=== PATIENT | female | born 1970 | race Caucasian/White ===

== ENCOUNTER 2022-06-29 07:30 | Outpatient (RCR) | payer OTHER, SELFPAY | END 2023-01-27 15:57 | disposition home or self-care (01) | PROVIDERS: PCP Family Medicine; Visit Provider Orthopaedic Surgery Sports Medicine | DX: M25.521 Pain in right elbow (principal); Z51.89 Encounter for other specified aftercare | CPT/HCPCS: 97110; 97140; 97165; X5282 ==

== ENCOUNTER 2022-08-16 06:31 | Emergency (ER) | payer OTHER, SELFPAY ==
[2022-08-16 07:15] VITALS: BP 128/86; PULSE 90; RESP 18; TEMP 36.2; O2SAT 98; BMI 39.1
--- NOTE | 2022-08-16 07:41 | ED_ITS ---
HPI - Extremity Injury (Lower) General Chief Complaint: Extremity Pain/Injury, Lower Stated Complaint: Left knee pain Time Seen by Provider: 08/16/22 06:37 Related Data Home Medications Medication Instructions Recorded Confirmed acetaminophen 325 mg tablet 325 - 650 mg PO Q4H PRN 05/25/22 07/15/22 albuterol 90 mcg/actuation aerosol 2 spray inhalation PRN 05/25/22 07/15/22 inhaler cetirizine 10 mg tablet 10 mg PO DAILY 05/25/22 07/15/22 fluticasone 500 mcg-salmeterol 50 1 inhalation BID 05/25/22 07/15/22 mcg/dose blistr powdr for inhalation fluticasone propionate 220 2 inhalation PRN 05/25/22 07/15/22 mcg/actuation HFA aerosol inhaler fluticasone propionate 50 2 spray intranasal QDAY 05/25/22 07/15/22 mcg/actuation nasal spray,suspension (Flonase Allergy Relief) montelukast 10 mg tablet 10 mg PO .Bedtime 05/25/22 07/15/22 psyllium husk 0.4 gram capsule 0.4 g PO QDAY 05/25/22 07/15/22 (Metamucil) sumatriptan succinate 25 mg tablet 25 mg PO .As Needed PRN 05/25/22 07/15/22 Allergies Allergy/AdvReac Type Severity Reaction Status Date / Time Sulfa drugs AdvReac Severe vaginal Uncoded 07/15/22 10:23 infection [facility] Medical History (Updated 08/16/22 @ 08:04 by Dwayne Voss MD) Asthma Encounter for pre-operative examination Migraine headache Surgical History H/O elbow surgery (04/18/22) History of laparoscopy (01/26/11) Status post delivery Family History Maternal Grandmother Breast cancer Social History Smoking Status: Former smoker Do you use any of these nicotine containing products: None Second hand tobacco smoke exposure: No How often do you have a drink containing alcohol: monthly or less AUDIT-C Alcohol total score: 1 Non-prescribed substance use: denies use Exam Const: Vital Signs, click to edit/add: Vital Signs - 24 hr 08/16/22 07:15 Temperature 97.2 F L Pulse Rate [Pulse Oximeter] 90 Respiratory Rate 18 Blood Pressure [Ri ght Upper Arm] 128/86 Pulse Oximetry 98 Oxygen Delivery Me thod Room Air Course Course Hospital Course: Pt seen and examined. Treatment options discussed. Vital Signs Vital signs: Initial Vital Signs Temperature 97.2 F L 08/16/22 07:15 Temperature Source Temporal Artery Scan 08/16/22 07:15 Pulse Rate 90 08/16/22 07:15 Respiratory Rate 18 08/16/22 07:15 Blood Pressure 128/86 08/16/22 07:15 Blood Pressure Mean 100 08/16/22 07:15 Blood Pressure Position Sitting 08/16/22 07:15 Pulse Oximetry 98 08/16/22 07:15 Oxygen Delivery Method 08/16/22 07:15 Vital Signs Temperature 97.2 F L 08/16/22 07:15 Pulse Rate 90 08/16/22 07:15 Respiratory Rate 18 08/16/22 07:15 Blood Pressure 128/86 08/16/22 07:15 Pulse Oximetry 98 08/16/22 07:15 Oxygen Delivery Method 08/16/22 07:15 Temperature 97.2 F L 08/16/22 07:15 Pulse Rate 90 08/16/22 07:15 Respiratory Rate 18 08/16/22 07:15 Blood Pressure 128/86 08/16/22 07:15 Pulse Oximetry 98 08/16/22 07:15 Oxygen Delivery Method 08/16/22 07:15 Discharge Plan Discharge Clinical Impression: Acute knee pain Patient Disposition: Home, Self-Care Condition: Stable Instructions: Knee Pain (ED) Additional Instructions: Ice Meliton Wrap Tylenol Prednisone as directed Follow up with Ortho Activity Level: No Restrictions Discharge Diet: Regular Prescriptions: No Action fluticasone propion-salmeterol 500-50 mcg/dose blister with device 1 inhalation BID sumatriptan succinate 25 mg tablet 25 mg PO .As Needed PRN Rx Instructions: ONE TAB AT ONSET OF HEADACHE, MAY REPEAT Q2H PRN, MAX 200 MG/24 HRS cetirizine 10 mg tablet 10 mg PO DAILY acetaminophen 325 mg tablet 325 - 650 mg PO Q4H PRN Rx Instructions: NO MORE THAN 4000 MG/DAY psyllium husk [Metamucil] 0.4 gram capsule 0.4 g PO QDAY montelukast 10 mg tablet 10 mg PO .Bedtime fluticasone propionate [Flonase Allergy Relief] 50 mcg/actuation spray,suspension 2 spray intranasal QDAY Rx Instructions: administer into each nostril albuterol 90 mcg/actuation aerosol 2 spray inhalation PRN fluticasone propionate 220 mcg/actuation HFA aerosol inhaler 2 inhalation PRN Follow Up/Referrals: Jazmyn Christianson MD [Primary Care Provider] - Stand Alone Forms: [employer] Info Instructions
--- NOTE | 2022-08-16 07:41 | ED_ITS ---
HPI - General Adult General Chief complaint: Extremity Pain/Injury, Lower Stated complaint: Left knee pain Time Seen by Provider: 08/16/22 06:37 History of Present Illness HPI narrative: Pt is a 52 year old woman with a known history of bilateral knee osteoarthritis who woke up this morning with worsening pain in her left knee. No recent trauma or injuries. Pt was seen by orthopedics 1 month ago with x rays showing osteoarthritis and patellar tilt. Cortisone injection was performed which did not help much with her symptoms. Pt has no bruising, echymosis or fever. No significant swelling but states that she can not bear weight on the left knee. While not weight bearing she can flex the knee without difficulty. Upon standing the pain is severe but no instability noted. Related Data Home Medications Medication Instructions Recorded Confirmed acetaminophen 325 mg tablet 325 - 650 mg PO Q4H PRN 05/25/22 07/15/22 albuterol 90 mcg/actuation aerosol 2 spray inhalation PRN 05/25/22 07/15/22 inhaler cetirizine 10 mg tablet 10 mg PO DAILY 05/25/22 07/15/22 fluticasone 500 mcg-salmeterol 50 1 inhalation BID 05/25/22 07/15/22 mcg/dose blistr powdr for inhalation fluticasone propionate 220 2 inhalation PRN 05/25/22 07/15/22 mcg/actuation HFA aerosol inhaler fluticasone propionate 50 2 spray intranasal QDAY 05/25/22 07/15/22 mcg/actuation nasal spray,suspension (Flonase Allergy Relief) montelukast 10 mg tablet 10 mg PO .Bedtime 05/25/22 07/15/22 psyllium husk 0.4 gram capsule 0.4 g PO QDAY 05/25/22 07/15/22 (Metamucil) sumatriptan succinate 25 mg tablet 25 mg PO .As Needed PRN 05/25/22 07/15/22 Allergies Allergy/AdvReac Type Severity Reaction Status Date / Time Sulfa drugs AdvReac Severe vaginal Uncoded 07/15/22 10:23 infection Review of Systems Status of ROS: Reports: 10 or more systems reviewed and unremarkable except as noted in History and below [facility] Medical History (Updated 08/16/22 @ 08:04 by Dwayne Voss MD) Asthma Encounter for pre-operative examination Migraine headache Surgical History H/O elbow surgery (04/18/22) History of laparoscopy (01/26/11) Status post delivery Family History Maternal Grandmother Breast cancer Social History Smoking Status: Former smoker Do you use any of these nicotine containing products: None Second hand tobacco smoke exposure: No Exam Narrative: Exam Narrative: EXAM GENERAL: Patient appears comfortable and well. EYES: No scleral icterus. THYROID: no thyroid nodules or thyromegaly. LYMPH: No supraclavicular or cervical lymphadenopathy. SKIN: Visible skin seen during exam normal or with benign process only. EXT: No dependent lower extremity pedal edema. Examination of the left knee shows normal range of motion. No palpable abnormalities with a mild joint effusion. HEART: Regular rate and rhythm with no murmurs, rubs, or gallops. LUNGS: Clear to auscultation bilaterally with no crackles or wheezes. ABD: Soft, non tender, non distended. PSYCH: Good eye contact, speech is not pressured. Const: Vital Signs, click to edit/add: Vital Signs - 24 hr 08/16/22 07:15 Temperature 97.2 F L Pulse Rate [Pulse Oximeter] 90 Respiratory Rate 18 Blood Pressure [Ri ght Upper Arm] 128/86 Pulse Oximetry 98 Oxygen Delivery Me thod Room Air Course Course Hospital Course: Pt seen and examined. Treatment options discussed. Vital Signs Vital signs: Initial Vital Signs Temperature 97.2 F L 08/16/22 07:15 Temperature Source Temporal Artery Scan 08/16/22 07:15 Pulse Rate 90 08/16/22 07:15 Respiratory Rate 18 08/16/22 07:15 Blood Pressure 128/86 08/16/22 07:15 Blood Pressure Mean 100 08/16/22 07:15 Blood Pressure Position Sitting 08/16/22 07:15 Pulse Oximetry 98 08/16/22 07:15 Oxygen Delivery Method 08/16/22 07:15 Vital Signs Temperature 97.2 F L 08/16/22 07:15 Pulse Rate 90 08/16/22 07:15 Respiratory Rate 18 08/16/22 07:15 Blood Pressure 128/86 08/16/22 07:15 Pulse Oximetry 98 08/16/22 07:15 Oxygen Delivery Method 08/16/22 07:15 Temperature 97.2 F L 08/16/22 07:15 Pulse Rate 90 08/16/22 07:15 Respiratory Rate 18 08/16/22 07:15 Blood Pressure 128/86 08/16/22 07:15 Pulse Oximetry 98 08/16/22 07:15 Oxygen Delivery Method 08/16/22 07:15 Medical Decision Making MDM Narrative Medical decision making narrative: Pt presents with atramatic knee pain. Previous work up by orthopedics. Discussed options. Will place on 5 day of prednisone. Ice. Wrap and crutches. Follow up with Ortho for possible MRI. Differential Diagnosis Differential Diagnosis: Osteoarthritis, Ligamentous injury, Septic Joint, Fracture Discharge Plan Discharge Clinical Impression: Acute knee pain Patient Disposition: Home, Self-Care Condition: Stable Instructions: Knee Pain (ED) Additional Instructions: Ice Meliton Wrap Tylenol Prednisone as directed Follow up with Ortho Activity Level: No Restrictions Discharge Diet: Regular Prescriptions: No Action fluticasone propion-salmeterol 500-50 mcg/dose blister with device 1 inhalation BID sumatriptan succinate 25 mg tablet 25 mg PO .As Needed PRN Rx Instructions: ONE TAB AT ONSET OF HEADACHE, MAY REPEAT Q2H PRN, MAX 200 MG/24 HRS cetirizine 10 mg tablet 10 mg PO DAILY acetaminophen 325 mg tablet 325 - 650 mg PO Q4H PRN Rx Instructions: NO MORE THAN 4000 MG/DAY psyllium husk [Metamucil] 0.4 gram capsule 0.4 g PO QDAY montelukast 10 mg tablet 10 mg PO .Bedtime fluticasone propionate [Flonase Allergy Relief] 50 mcg/actuation spray,suspension 2 spray intranasal QDAY Rx Instructions: administer into each nostril albuterol 90 mcg/actuation aerosol 2 spray inhalation PRN fluticasone propionate 220 mcg/actuation HFA aerosol inhaler 2 inhalation PRN Follow Up/Referrals: Jazmyn Christianson MD [Primary Care Provider] - Stand Alone Forms: [facility] Info Instructions
== END 2022-08-16 08:24 | disposition home or self-care (01) ==
LOC: ED 08:14
PROVIDERS: Emergency Provider Internal Medicine; PCP Family Medicine
DX: M25.562 Pain in left knee (principal); R26.2 Difficulty in walking, not elsewhere classified; M17.0 Bilateral primary osteoarthritis of knee
CPT/HCPCS: 99282; 99283

== ENCOUNTER 2022-08-25 06:56 | Outpatient (CLI) | payer OTHER, SELFPAY ==
--- NOTE | 2022-08-25 07:15 | MR_ITS ---
[address] [address] Phone:?[phone] Fax:?[phone] Referring Physician Information: Douglas Poole M.D. [id number] [facility] [address] Phone:?[phone] Fax:?[phone] Patient:Shilpa Stapleton D.O.B:?1970 Sex:?Female Phone:?[phone] [facility] MRN:?[id number] Exam Date:?08/25/2022 ? EXAM: MRI of the LEFT KNEE, without contrast CLINICAL HISTORY: Left knee pain. Evaluate medial collateral ligament sprain. COMPARISONS: None available. TECHNICAL: MR sequences of the left knee: sagittals: PD, PDFS coronals: PD, STIR axials: PD, T2 FS CONTRAST: None SEDATION: None FINDINGS: Bones: No fracture, bone marrow contusion, or other suspicious bone marrow signal abnormality. Patellofemoral joint: Cartilage: Intact. Retinacula: The medial and lateral retinacula are intact. Fat pads: The infrapatellar, quadriceps, and prefemoral fat pads are unremarkable. Knee joint: Effusion: Moderate left knee joint effusion. Popliteal cyst: None. Intra-articular bodies: None. Medial compartment: Medial meniscus: Full-thickness radial tear through the posterior root of the medial meniscus with marked medial meniscal extrusion best seen on coronal series 8 image 21, sagittal series 6 image 15, axial series 4 image 19, and coronal series 7 and 8 image 20. Cartilage: Intact. Lateral compartment: Lateral meniscus: Intact. Cartilage: Intact. Ligaments: Anterior cruciate ligament: Intact. Posterior cruciate ligament: Intact. Medial collateral ligament: Intact. Posterior oblique ligament: Intact. Fibular collateral ligament: Intact. Posterolateral corner: The distal biceps femoris tendon, iliotibial band, popliteus tendon, popliteus muscle, popliteofibular ligament, and arcuate ligament are intact. Posteromedial corner: The semimembranosus and pes anserine tendons are intact. Extensor mechanism: Patellar tendon: Intact. Quadriceps tendon: Intact. IMPRESSION: 1. Full-thickness radial tear through the posterior root of the medial meniscus with marked medial meniscal extrusion. 2. Moderate left knee joint effusion. 3. No cruciate or collateral ligament injury, tendinous pathology, lateral meniscal tear, or chondral pathology of the left knee. RCB Electronically signed on 08/25/2022 12:20:00 PM by Colten Chaparro M.D.
== END 2022-08-25 06:57 | disposition home or self-care (01) ==
LOC: MRI 06:57
PROVIDERS: PCP Family Medicine; Visit Provider Orthopaedic Surgery Sports Medicine
DX: M25.562 Pain in left knee (principal); S83.242A Other tear of medial meniscus, current injury, left knee, initial encounter; M25.462 Effusion, left knee
CPT/HCPCS: 73721

== ENCOUNTER 2022-09-28 06:20 | Day surgery (SDC) | payer OTHER, SELFPAY ==
[2022-09-28] VITALS (12 sets, daily range): BP systolic 85–122; BP diastolic 51–80; PULSE 66–93; RESP 16–18; TEMP 36.6–36.9; O2SAT 96–100; BMI 38.3
[2022-09-28] MEDS: SODIUM CHLORIDE 0.9 % (FLUSH) 10 ML SYRINGE IVF (06:40)
[2022-09-28] MEDS: LACTATED RINGERS 1000 ML 1,000 ML 100 ML IV (06:40)
--- NOTE | 2022-09-28 06:52 | SUR.PREOP ---
VISUALIZED PATIENT'S HOME ANTIGEN TEST, RESULTS NEGATIVE.
[2022-09-28] MEDS: CEFAZOLIN 2 GM in 0.9 % SODIUM CHLORIDE Mini-bag 100 ML IVPB (07:35)
[2022-09-28] MEDS: ROPIVACAINE 0.5% 30 ML 150 MG INJECTION (08:15)
--- NOTE | 2022-09-28 08:19 | PM.ORPRC ---
Procedure Note Date of procedure: 09/28/22 Procedure: PREOPERATIVE DIAGNOSIS: 1. Left knee medial meniscus tear POSTOPERATIVE DIAGNOSIS: 1. Left knee medial meniscus tear 2. 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 PROCEDURE: 1. Left knee arthroscopic partial medial menisectomy 2. Left knee arthroscopic chondroplasty medial femoral condyle SURGEON: Douglas Poole M.D. [employer]PER[employer]: Daniel ROMERO. Of note, an faculty i on call medical assistant was critical for this case to aid in patient positioning, knee manipulation, instrument exchange, and closure. ANESTHESIA: Spinal EBL: 2ml TOURNIQUET: 30 min at 300 torr COMPLICATIONS: None evident INDICATIONS: The patient is a pleasant 52-year-old female who has experienced left knee pain particularly with any twisting or turning. Physical exam was concerning for medial meniscus tear, this was confirmed on MRI. Additionally, attempted nonoperative management has been tried, and failed. Thus, surgery was recommended. FINDINGS: Well initially this was suspected to be a posterior root medial meniscus tear, upon evaluation was found to be a posterior root extension of posterior horn with a complex pattern including flap fragment displaced into the posterior gutter. It also had a horizontal and vertical component to it. DESCRIPTION OF PROCEDURE: After a thorough discussion of risks, benefits, and alternatives, the patient was brought to the operating room and placed upon the operating table. Induction of anesthesia was undertaken as previously noted. 2g iv Ancef was administered within 1 hr of incision preoperatively. Appropriate time-out was performed identifying proper patient, site, and procedure. The left lower extremity was prepped and draped in the appropriate sterile fashion using ChloraPrep. The limb was exsanguinated and tourniquet inflated. Anterolateral and anteromedial portals were established with an 11 blade, and a diagnostic arthroscopy was performed. This identified the findings as noted above. Following the diagnostic arthroscopy, the medial meniscus was further evaluated/probed. Yes it had the posterior root tear, but also had extension of the posterior horn with a complex pattern including displaced flap fragment. This was not felt to be repairable based on tear pattern. A partial medial menisectomy was performed with the combination of basket forceps and a motorized shaver. Following this, the meniscus was re-probed and found to be stable. Approximately 25 % of the overall meniscus required resection. The shaver was also utilized for chondroplasty loose chondral flaps on the medial femoral condyle. At this stage, the shaver was reinserted into the suprapatellar pouch and all remaining meniscal debris was evacuated. Instruments were removed, excess fluid was drained, and closure performed with 4-0 Monocryl with Steri-Strips. Dressings were applied, the tourniquet deflated, and the patient was awoken from anesthesia and transferred to the PACU in stable condition. PLAN: 1. Weightbear as tolerated operative extremity. Crutch / walker ambulation assistance PRN. Straight leg raise to be initiated starting tomorrow by the patient. 2. Ice, acetominophen and/or ibuprofen, and Percocet for pain as needed. 3. Knee range of motion and quad sets/straight leg raise regularly 4. Follow up with PA visit in 7-10 days. for a wound check. Initiate physical therapy at that time
--- NOTE | 2022-09-28 08:31 | W.ANESCHARGE ---
Anesthesia Charges Start Date/Time Anesthesia Start Date: 09/28/22 Anesthesia Start Time: 07:22 Stop Date/Time Anesthesia Stop Date: 09/28/22 Anesthesia Stop Time: 08:27 Summary Emergency: No
--- NOTE | 2022-09-28 08:55 | W.ANESCHARGE ---
Anesthesia Charges Start Date/Time Anesthesia Start Date: 09/28/22 Anesthesia Start Time: 07:22 Stop Date/Time Anesthesia Stop Date: 09/28/22 Anesthesia Stop Time: 08:27 Summary Emergency: No
== END 2022-09-28 10:27 | disposition home or self-care (01) ==
LOC: OR 06:21
PROVIDERS: PCP Family Medicine; Visit Provider Orthopaedic Surgery Sports Medicine
PROC: (CPT 29882; principal; 2022-09-28 07:30)
DX: S83.232A Complex tear of medial meniscus, current injury, left knee, initial encounter (principal); M94.262 Chondromalacia, left knee
CPT/HCPCS: 29881; 1400; J0690; J1100; J2250; J2400; J2405; J2704; J2795; J3010; J7120